=== PATIENT | male | born 1940 | race Caucasian/White ===

== ENCOUNTER 2024-05-19 18:56 | Observation (INO) | payer OTHER ==
[2024-05-19] MEDS ORDERED: methylPREDNISolone NA SUCC 125 MG/2 ML VIAL ONE (19:19)
[2024-05-19] MEDS ORDERED: FAMOTIDINE 20 MG/50 ML IVPB 20 MG/50 ML MG IVPB ONE (19:20)
[2024-05-19] MEDS ORDERED: EPINEPHrine/PF 1 MG/1 ML (1:1,000) AMPULE ONE (19:20)
[2024-05-19] MEDS: FAMOTIDINE 20 MG/50 ML IVPB 20 MG/50 ML MG IVPB ONE (19:32)
[2024-05-19] MEDS: EPINEPHrine 1:1,000 0.3 MG/0.3 ML SYR IM ONE (19:32)
[2024-05-19] MEDS: methylPREDNISolone NA SUCC 125 MG/2 ML VIAL IVPB ONE (19:32)
[2024-05-20 01:26] LABS: HEMATOCRIT 38.1 % (35.4-49); HEMOGLOBIN 12.4 GM/dL (11.7-16.9); MCH 25.4 pg (25.7-33.7); MCHC 32.4 g/dl (32.0-35.9); MEAN CELL VOLUME 78.4 fl (80-96); MEAN PLT VOLUME 7.9 fl (7.5-11.1); PLATELET COUNT 263 10^3/uL (134-434); RBC 4.86 M/mm3 (4.00-5.60); RDW 18.3 % (11.9-15.9); WHITE BLOOD COUNT 11.2 K/mm3 (4.0-10.0)
[2024-05-20 01:46] LABS: POTASSIUM 3.9 mmol/L (3.5-5.1)
[2024-05-20 01:48] LABS: BLOOD UREA NITROGEN 21.8 mg/dL (7-18)
[2024-05-20 01:49] LABS: ALBUMIN 3.1 g/dl (3.4-5.0)
[2024-05-20 01:51] LABS: CREATININE 1.5 mg/dL (0.55-1.3)
[2024-05-20 01:53] LABS: BILIRUBIN,TOTAL 0.7 mg/dL (0.2-1); TOT PROT 7.2 g/dl (6.4-8.2)
[2024-05-20 04:35] VITALS: BMI 14.7
[2024-05-20 05:09] LABS: ANISOCYTOSIS 3+; MACROCYTOSIS 0; OVALOCYTE 1+; TARGET CELLS 1+
[2024-05-20] MEDS: FAMOTIDINE 20 MG/50 ML IVPB 20 MG/50 ML MG IVPB SCH (10:06)
[2024-05-20] MEDS: methylPREDNISolone NA SUCC 40 MG/1 ML VIAL IVPUSH SCH (10:06)
[2024-05-20] MEDS: DEXAMETHASONE SOD PHOSPHATE 10 MG/1 ML VIAL IVPUSH SCH (11:52)
[2024-05-20] MEDS: amLODIPine BESYLATE 5 MG TABLET (FP) PO SCH (13:14)
[2024-05-20] MEDS: TAMSULOSIN HCL 0.4 MG CAP PO SCH (15:15)
[2024-05-20] MEDS: MEMANTINE HCL 5 MG TABLET (UD) PO SCH (15:37)
[2024-05-20] MEDS: INSULIN ASPART SLIDING SCALE (NOVOLOG) 1 VIAL SQ SCH (16:44)
[2024-05-20] MEDS: ATORVASTATIN CA 40 MG TABLET (FP) PO SCH (21:18)
[2024-05-20] MEDS: DEXTROSE 5%-0.45% SALINE 1,000 ML IV SCH (21:18)
[2024-05-21] MEDS: LEVOTHYROXINE NA 112 MCG TABLET (FP) PO SCH (06:19)
[2024-05-21 08:16] LABS: BASO % 0.1 % (0-2.0); HEMATOCRIT 36.6 % (35.4-49); HEMOGLOBIN 11.9 GM/dL (11.7-16.9); LYMPH % 8.9 % (8-40); MCH 25.7 pg (25.7-33.7); MCHC 32.4 g/dl (32.0-35.9); MEAN CELL VOLUME 79.4 fl (80-96); MEAN PLT VOLUME 8.1 fl (7.5-11.1); MONO % 2.6 % (3.8-10.2); NEUT % 88.4 % (42.8-82.8); PLATELET COUNT 251 10^3/uL (134-434); RBC 4.61 M/mm3 (4.00-5.60); RDW 18.4 % (11.9-15.9); WHITE BLOOD COUNT 14.7 K/mm3 (4.0-10.0)
[2024-05-21 08:22] LABS: POTASSIUM 4.5 mmol/L (3.5-5.1)
[2024-05-21 08:24] LABS: ALBUMIN 3.1 g/dl (3.4-5.0); BLOOD UREA NITROGEN 30.9 mg/dL (7-18)
[2024-05-21 08:27] LABS: CREATININE 1.3 mg/dL (0.55-1.3)
[2024-05-21 08:29] LABS: BILIRUBIN,TOTAL 1.1 mg/dL (0.2-1); TOT PROT 7.2 g/dl (6.4-8.2)
[2024-05-21] MEDS ORDERED: TAMSULOSIN HCL 0.4 MG CAP PO SCH (08:30)
[2024-05-21] MEDS: amLODIPine BESYLATE 5 MG TABLET (FP) PO SCH (09:22)
[2024-05-21 14:05] VITALS: BP 148/70; PULSE 76; RESP 20; TEMP 98.5
== END 2024-05-21 16:30 | disposition home or self-care (01) ==
LOC: JER 18:56 → JERBED 05-20 01:17 → J4S 05-20 04:17
PROVIDERS: ADMIT Internal Medicine; ATTEND Internal Medicine
PROC: 3E033GC Introduction of Other Therapeutic Substance into Peripheral Vein, Percutaneous Approach (ICD-10-PCS; principal; 2024-05-20)
PROC: 3E023GC Introduction of Other Therapeutic Substance into Muscle, Percutaneous Approach (ICD-10-PCS; 2024-05-20)
PROC: 3E033NZ Introduction of Analgesics, Hypnotics, Sedatives into Peripheral Vein, Percutaneous Approach (ICD-10-PCS; 2024-05-20)
DX: T78.3XXA Angioneurotic edema, initial encounter (principal); T78.40XA Allergy, unspecified, initial encounter; X58.XXXA Exposure to other specified factors, initial encounter; F03.90 Unspecified dementia, unspecified severity, without behavioral disturbance, psychotic disturbance, mood disturbance, and anxiety; R45.1 Restlessness and agitation; E11.9 Type 2 diabetes mellitus without complications; I10 Essential (primary) hypertension; R32 Unspecified urinary incontinence; R53.81 Other malaise
CPT/HCPCS: 36415; 71045-TC-FY; 76775-TC; 80053; 82962; 83036; 84443; 85025; 93005; 93010; 96365; 96366; 96367; 96372; 96375; 96376; 99285-25; G0378; J0171; J1100